=== PATIENT | female | born 1945 | race Caucasian/White ===

== ENCOUNTER 2016-10-17 01:18 | Inpatient (IN) | payer OTHER ==
[~2016-10-17] VITALS: Ht 157.5 cm; Wt 86.0 kg
[2016-10-17 01:55] LABS: EOSINOPHIL (%) 0.2 % (0-5); HEMATOCRIT 43.9 % (36.0-46.0); IMMATURE GRANULOCYTE (%) 0.4 % (0.0-0.7); IMMATURE GRANULOCYTE COUNT 0.4 K/uL; LYMPHOCYTE COUNT 1.3 K/uL (1.0-2.8); MCH 31.7 PG (29.0-34.0); MCHC 34.2 G/DL (30.0-36.0); MCV 92.8 FL (83-99); MEAN PLAT.VOLUME 9.6 uM^3 (9.5-12.4); MONOCYTE (%) 4.9 % (3-12); MONOCYTE COUNT 0.6 K/uL (0-0.8); NEUTROPHIL (%) 82.9 % (45-76); NEUTROPHIL COUNT 9.3 K/uL (1.8-6.4); PLATELET COUNT 268 K/uL (156-360); RBC DIS.WIDTH-CV 13.9 % (11.8-14.6); RBC DIS.WIDTH-SD 45.7 % (39-53); RED BLOOD COUNT 4.73 M/uL (3.80-5.20); WHITE BLOOD COUNT 11.2 K/uL (4.1-10.2)
[2016-10-17 02:08] LABS: CHLORIDE 105 mEq/L (99-109); POTASSIUM 3.5 mEq/L (3.7-5.4); SODIUM 141 mEq/L (136-147)
[2016-10-17 02:10] LABS: GLUCOSE 249 mg/dL (70-99)
[2016-10-17 02:11] LABS: ANION GAP 17 MEQ/L (2-14)
[2016-10-17 02:12] LABS: TOTAL BILIRUBIN 0.5 mg/dL (0.0-1.0)
[2016-10-17 02:14] LABS: ALKALINE PHOSPHATASE 41 IU/L (3-129); GFR ESTIMATE (CALCULATED) 31 mL/min/
[2016-10-17 02:15] LABS: UREA NITROGEN (BUN) 20 mg/dL (9-23)
[2016-10-17 02:17] LABS: LIPASE 33 U/L (1.0-51.0)
[2016-10-17 02:19] LABS: TROP-I INTERPRETATION NEGATIVE; TROPONIN-I < 0.01 ng/mL (0.0-0.30)
[2016-10-17 02:30] LABS: ADD MIUA? NO; BILIRUBIN NEGATIVE; BLOOD NEGATIVE; COLOR YELLOW ((YELLOW)); GLUCOSE (STRIP) 250; KETONES TRACE; LEUKOCYTES NEGATIVE; NITRITE NEGATIVE; PROTEIN (STRIP) 30; SPECIFIC GRAVITY 1.015 (1.000-1.030); UCUL ADDED? NO; UROBILINOGEN 0.2 MG/DL (0.2-1.0)
[2016-10-17] MEDS ORDERED: AMLODIPINE-BEN1 EAC4 PO (03:51)
[2016-10-17] MEDS ORDERED: BUSPAR30 MG PO (03:52)
[2016-10-17] MEDS ORDERED: FLUOXETINE HCL20 MG PO (03:53)
[2016-10-17] MEDS ORDERED: FENOFIBRATE160 M1 PO (03:53)
[2016-10-17] MEDS ORDERED: FOLIC ACID0.4 MG PO (03:56)
[2016-10-17] MEDS ORDERED: METFORMIN HCL500 MG PO (03:57)
[2016-10-17] MEDS ORDERED: TREXALL7.5 MG PO (03:57)
[2016-10-17] MEDS ORDERED: OMEPRAZOLE20 M2 PO (03:57)
[2016-10-17] MEDS ORDERED: TRAMADOL HCL50 MG PO (03:59)
[2016-10-17 06:25] VITALS: BP 187/82
[2016-10-17 07:14] VITALS: BP 158/72
[2016-10-17] MEDS ORDERED: BUSPAR15 MG PO (10:58)
[2016-10-17] MEDS ORDERED: METHOTREXATE2.5 MG PO (11:01)
[2016-10-17] MEDS ORDERED: DITROPAN XL15 MG PO (11:03)
[2016-10-17 11:42] VITALS: BP 172/81
[2016-10-17 13:54] LABS: POINT-OF-CARE USER ID 515036437
[2016-10-17 16:14] VITALS: BP 168/81
[2016-10-17 19:00] VITALS: BP 158/70
[2016-10-17 22:55] VITALS: BP 138/77
[2016-10-18 02:12] VITALS: BP 172/90
[2016-10-18 03:30] VITALS: BP 166/73
[2016-10-18 06:40] LABS: HEMATOCRIT 39.9 % (36.0-46.0); MCH 32.2 PG (29.0-34.0); MCHC 34.1 G/DL (30.0-36.0); MCV 94.5 FL (83-99); MEAN PLAT.VOLUME 9.7 uM^3 (9.5-12.4); PLATELET COUNT 254 K/uL (156-360); RBC DIS.WIDTH-CV 14.3 % (11.8-14.6); RBC DIS.WIDTH-SD 46.8 % (39-53); RED BLOOD COUNT 4.22 M/uL (3.80-5.20)
[2016-10-18 07:37] LABS: ANION GAP 10 MEQ/L (2-14); CHLORIDE 106 MEQ/L (99-109); GFR ESTIMATE (CALCULATED) > 59 mL/min/; GLUCOSE 161 mg/dL (70-99); POTASSIUM 3.8 MEQ/L (3.7-5.4); SAMPLE HEMOLYSIS CHECK 0; SAMPLE ICTERIC CHECK 0; SAMPLE LIPEMIA CHECK 0; SODIUM 141 MEQ/L (136-147); UREA NITROGEN (BUN) 12 mg/dL (9-23)
[2016-10-18 08:29] VITALS: BP 150/84
[2016-10-18] MEDS ORDERED: CIPRO500 MG PO (09:39)
== END 2016-10-18 12:25 | disposition home or self-care (01) | DRG 694 ==
LOC: EME 01:18 → EDOF 04:39 → 2EAST 04:39 → 2EASTP 06:00 → 2EAST 09:04
PROVIDERS: Emergency Medicine; Hospitalist; Internal Medicine; Physician Assistant Medical
DX: N13.2 Hydronephrosis with renal and ureteral calculous obstruction (principal); N13.8 Other obstructive and reflux uropathy; N17.9 Acute kidney failure, unspecified; E86.0 Dehydration; I10 Essential (primary) hypertension; E11.65 Type 2 diabetes mellitus with hyperglycemia; Z79.84 Long term (current) use of oral hypoglycemic drugs; M06.9 Rheumatoid arthritis, unspecified; Z79.899 Other long term (current) drug therapy; E78.5 Hyperlipidemia, unspecified; K21.9 Gastro-esophageal reflux disease without esophagitis; G89.29 Other chronic pain; M54.5 Low back pain; M51.9 Unspecified thoracic, thoracolumbar and lumbosacral intervertebral disc disorder; F41.9 Anxiety disorder, unspecified; Z87.891 Personal history of nicotine dependence
CPT/HCPCS: 71010; 74176; 80048; 80053; 81003; 82948; 83690; 83880; 84484; 85025; 85027; 93005; 94799; 99281; 99285; C1758; C1876; J0131; J0360; J0690; J0744; J1170; J1644; J1815; J2250; J2405; J2765; J3010; J7030; J7050; J7120; S0028